=== PATIENT | female | born 1980 | race Caucasian/White ===

== ENCOUNTER → 2019-03-03 | Outpatient (REF) | payer BC ==
[2019-03-03 17:40] LABS: FREE T4 0.93 NG/DL (0.76-1.46); THYROID STIMULATING HORMONE 1.01 uIU/ML (0.358-3.740)
== END ==
LOC: M LABDRAW1 15:53
PROVIDERS: ATTEND Physician Assistant
DX: R50.9 Fever, unspecified (principal)

== ENCOUNTER → 2021-04-07 | Outpatient (CLI) | payer BC ==
--- NOTE | 2021-04-07 16:24 | REP ---
INDICATION: N63.14 RT BREAST LUMP. Right breast lump x1 month, occasionally painful. Small grape size. COMPARISON: no comparison breast imaging. TECHNIQUE: Bilateral CC and MLO) view(s) were taken. A skin marker is affixed to the skin at the site of the palpable lump for the right breast images. Right breast images were augmented by magnified focal spot compression and true mL views. 3D tomography was deployed. Targeted right breast sonography is carried out. FINDINGS: Scattered fibroglandular elements are seen bilaterally. No suspicious or dominant density is seen. No microcalcification or architectural distortion is seen. No worrisome skin change is appreciated. 3-D tomosynthesis shows no additional finding. No at evidence of mass, nodule or spiculation is seen in this area of the palpable lump on the right or elsewhere. The skin marker projects in the 3 o'clock position in the right breast. The Volpara volumetric breast density pattern is B. Targeted right breast sonography: Fairly homogeneous of background echotexture is seen. No cyst, mass, or acoustic shadowing is appreciated sonographically. No suspicious ultrasound findings.. IMPRESSION: BIRADS/ACR category 1 negative mammographic and sonographic findings.. This patient's estimated Tyrer-Cuzick lifetime risk assessment for breast cancer is 20.7%. Enhanced screening in the form of annual bilateral breast MRI scanning is warranted. Bilateral breast MRI scanning is recommended annually, beginning 6 months from now. This mammogram was interpreted with the aid of an FDA-approved computer-aided detection system. The patient states she had a clinical breast exam in February of 2021. The patient letter being requested is M2. RECOMMENDATION: Repeat screening mammography recommended 1 year (for women over 40). Clinical follow-up regarding the patient's palpable lump. Bilateral breast MRI scanning recommended in 6 months due to elevated risk factors.. <Electronically signed by Lester Barnett > 04/07/21 [id number]
== END ==
LOC: M WHC 14:54
PROVIDERS: ATTEND Physician Assistant Medical
DX: N63.14 Unspecified lump in the right breast, lower inner quadrant (principal)